=== PATIENT | male | born 1990 | race Caucasian/White ===

== ENCOUNTER 2017-08-17 19:16 | Emergency (ER) | payer SELFPAY ==
[2017-08-17 19:29] VITALS: BP 151/88; PULSE 180; TEMP 99.1; BMI 29.8
--- NOTE | 2017-08-20 11:42 | EKG ---
Test Reason : Blood Pressure : / mmHG Vent. Rate : 176 BPM Atrial Rate : 174 BPM P-R Int : 000 ms QRS Dur : 094 ms QT Int : 276 ms P-R-T Axes : 000 036 064 degrees QTc Int : 472 ms POOR DATA QUALITY, INTERPRETATION MAY BE ADVERSELY AFFECTED SUPRAVENTRICULAR TACHYCARDIA ST depression, consider subendocardial injury NONSPECIFIC T WAVE ABNORMALITY ABNORMAL ECG WHEN COMPARED WITH ECG OF 31-MAR-2014 14:09, VENT. RATE HAS INCREASED BY [address] NOW DEPRESSED IN ANTEROLATERAL LEADS NONSPECIFIC T WAVE ABNORMALITY NOW EVIDENT IN LATERAL LEADS Confirmed by SHERWIN IBRAHIM MD ([id number]) on 08/20/2017 11:42:16 AM Referred By: Confirmed By:SHERWIN IBRAHIM MD
--- NOTE | 2017-08-20 12:32 | PDOC ---
Rapid Medical Evaluation Chief Complaint: Choking Sensation Medical Evaluation: Allergies Allergy/AdvReac Type Severity Reaction Status Date / Time soy Allergy Rash Verified 08/17/17 19:19 sea food Allergy Rash Uncoded 08/17/17 19:19 Vital Signs Temp Pulse Resp BP Pulse Ox 99.1 F 180 H 18 151/88 99 08/17/17 19:20 08/17/17 19:20 08/17/17 19:20 08/17/17 19:20 08/17/17 19:20 08/20/17 12:30 late entry: Pt arrived to ER presented to triage nurse c/o feeling anxious. triage nurse obtained stat EKG as his HR was 180. Pt noted to be in SVT pt was escoreted to the main ER by Leena LUIS. Pt was with family member. As nurse was escorting pt to the main ER he left ER despite our concerns of him needing immediate treatment. Discharge Disposition - Diagnosis SVT - Discharge Dispostion Disposition: AGAINST MEDICAL ADVICE Last Admission D/C Date: 04/27/12 - Referrals Referrals: Fernando Bragg MD [Primary Care Provider] - - Patient Instructions - Post Discharge Activity
== END 2017-08-17 20:05 | disposition left against medical advice (07) ==
LOC: JER 19:16
DX: Z53.21 Procedure and treatment not carried out due to patient leaving prior to being seen by health care provider (principal)
CPT/HCPCS: 93005; 93010; 99281-25